=== PATIENT | male | born 1945 | race Caucasian/White ===

== ENCOUNTER 2020-10-29 14:25 | Emergency (ER) | payer MEDICARE ==
[2020-10-29 14:35] VITALS: BP 159/91; PULSE 66
[2020-10-29] MEDS ORDERED: HYDROmorphone 4 MG/ML Syringe SUBCUT PRN (15:06)
--- NOTE | 2020-10-29 15:38 | EDM.PDOC ---
ED HPI GENERAL MEDICAL PROBLEM - General Stated Complaint: FALL OFF LADDER Time Seen by Provider: 10/29/20 14:30 - History of Present Illness INITIAL COMMENTS - FREE TEXT/NARRATIVE: Pt fell off ladder shikha 6 - 8 feet. Landing on his buttocks and then hitting his head. He was told he was unconscious for a few seconds. He has C/O headache and a lump on the back of his head. He does have low back and tailbone pain. NO chest pain - SOB - Abd pain. head Pain Score (Numeric/FACES): 5 - Related Data Allergies Allergy/AdvReac Type Severity Reaction Status Date / Time No Known Allergies Allergy Verified 12/12/13 13:05 Home Meds: Home Meds atorvaSTATin Calcium [Atorvastatin Calcium] 10/29/20 [History] ED ROS GENERAL - Review of Systems Review Of Systems: Comprehensive ROS is negative, except as noted in HPI. HEENT: Reports: Other (swelling on back of head.) Musculoskeletal: Reports: Other (Low back and tailbone pain.) ED EXAM, HEAD INJURY - Physical Exam Exam: See Below Text/Narrative:: Pt is awake and alert. No respiratory distress. Examining his head reveals a mass on the lower left posterior portion shikha 3 cm in size. Skin is intact. Examining his back reveals 2 small abrasion injuries on the lower back. No bleeding. PERRL - C collar removed, no pain with palpation of his neck. He can rotate his head and neck gently without pain. Eyes: Bilateral Eye: EOMI, PERRL Neurologic: executive office manager II-XII nml As Tested - Silvia Coma Score Best Eye Response ([place]): (4) Open Spontaneously Best Verbal Response ([place]): (5) Oriented Best Motor Response (Silvia): (6) Obeys Commands Silvia Total: 15 Course - Vital Signs Last Recorded V/S: Last Vital Signs Temp 98.1 F 10/29/20 14:30 Pulse 66 10/29/20 14:30 Resp 16 10/29/20 14:30 BP 159/91 H 10/29/20 14:30 Pulse Ox 98 10/29/20 14:30 - Orders/Labs/Meds Orders: Active Orders 24 hr Category Date Time Status Abdomen Pelvis wo Cont [CT] Stat Exams 10/29/20 14:28 Taken Cervical Spine wo Cont [CT] Stat Exams 10/29/20 14:28 Taken Head wo Cont [CT] Stat Exams 10/29/20 14:28 Taken UA W/MICROSCOPIC [URIN] Stat Lab 10/29/20 14:28 Ordered Labs: Laboratory Tests 10/29/20 10/29/20 Range/Units 14:40 14:40 WBC 6.4 (4.0-11.0) K/uL RBC 4.83 (4.50-6.50) M/uL Hgb 15.1 (13.0-18.0) g/dL Hct 43.9 (40.0-54.0) % MCV 91 (76-96) fL MCH 31.3 (27.0-32.0) pg MCHC 34.4 (31.0-35.0) g/dL RDW 13.6 (11.0-16.0) % Plt Count 178 (150-400) K/uL MPV 10.5 H (6.0-10.0) fL Neut % (Auto) 60.2 (45.0-70.0) % Lymph % (Auto) 27.9 (20.0-40.0) % [place] % (Auto) 9.4 (3.0-10.0) % Eos % (Auto) 1.6 (1.0-5.0) % Baso % (Auto) 0.9 H (0.0-0.5) % Neut # (Auto) 3.82 (2.00-7.50) K/uL Lymph # (Auto) 1.77 (1.50-4.00) K/uL [place] # (Auto) 0.60 (0.20-0.80) K/uL Eos # (Auto) 0.10 (0.04-0.40) K/uL Baso # (Auto) 0.06 (0.02-0.10) K/uL Sodium 139 (136-145) mmol/L Potassium 4.0 (3.5-5.1) mmol/L Chloride 108 H (98-107) mmol/L Carbon Dioxide 26.1 (21.0-32.0) mmol/L Anion Gap 8.9 (5.0-15.0) mmol/L BUN 20 (8-26) mg/dL Creatinine 1.05 (0.70-1.30) mg/dL Est Cr Clr Drug Dosing TNP Estimated GFR (MDRD) > 60 (>60) MLS/MIN BUN/Creatinine Ratio 19.0 (6-25) Glucose 97 (74-100) mg/dL Calcium 8.8 (8.5-10.1) mg/dL Total Bilirubin 0.7 (0.0-1.0) mg/dL AST 18 (15-37) U/L ALT 22 (12-78) U/L Alkaline Phosphatase 69 (46-116) U/L Total Protein 6.1 L (6.4-8.2) g/dL Albumin 3.2 L (3.4-5.0) g/dL Globulin 2.9 (2.2-4.2) g/dL Albumin/Globulin Ratio 1.1 (0.8-2.0) Meds: Medications Discontinued Medications Generic Name Dose Route Start Last Admin Trade Name Freq PRN Reason Stop Dose Admin Hydromorphone HCl 1 mg 10/29/20 15:06 Hydromorphone 4 Mg/Ml Syringe SUBCUT Q4H PRN Pain (moderate 4-6) - Radiology Interpretation Free Text/Narrative:: CT of Head, C spine, Abd and pelvis reveal some chronic changes, but no acute changes. - Re-Assessments/Exams Free Text/Narrative Re-Assessment/Exam: 10/29/20 15:40 Pt did get Dilaudid 1 mg Subq for pain. He continued to do well with observation. After lab and imaging reviewed he was able to get up and walk after C collar removed. He was stable - no dizziness or nausea. 10/29/20 15:41 Departure - Departure Time of Disposition: 15:30 Disposition: Home, Self-Care 01 Condition: Good Clinical Impression: Fall (on) (from) other stairs and steps, initial encounter - Discharge Information *PRESCRIPTION DRUG MONITORING PROGRAM REVIEWED*: Not Applicable *COPY OF PRESCRIPTION DRUG MONITORING REPORT IN PATIENT ALY: Not Applicable Referrals: PCP,None [Primary Care Provider] - Additional Instructions: Discharged home with . She is to be with him observing him over the next 24 hours. Monitor for any changes - increasing H/A - dizziness, nausea or vomiting. Use Tylenol alternating with Motrin every 3-4 hours for pain. Follow up as needed if his condition gets worse in any way. Sepsis Event Note (ED) - Evaluation Sepsis Screening Result: No Definite Risk - Focused Exam Vital Signs: Vital Signs Temp Pulse Resp BP Pulse Ox 10/29/20 14:30 98.1 F 66 16 159/91 H 98 - My Orders Last 24 Hours: My Active Orders 10/29/20 14:28 Abdomen Pelvis wo Cont [CT] Stat Cervical Spine wo Cont [CT] Stat Head wo Cont [CT] Stat UA W/MICROSCOPIC [URIN] Stat - Assessment/Plan Last 24 Hours: My Active Orders 10/29/20 14:28 Abdomen Pelvis wo Cont [CT] Stat Cervical Spine wo Cont [CT] Stat Head wo Cont [CT] Stat UA W/MICROSCOPIC [URIN] Stat
--- NOTE | 2020-10-29 16:43 | CT ---
DATE OF SERVICE: 10/29/2020 CLINICAL DATA: Fall CT HEAD WITHOUT CONTRAST: Multi slice axial acquisition without IV contrast was performed. No priors. There is diffuse atrophy. There are periventricular lucencies bilaterally consistent with small vessel ischemic change. No masses or mass effect. No intracranial hemorrhage. No evidence of acute or subacute infarct. There is soft tissue swelling of the scalp in the left posterior parietal region. No fractures. Impression: No acute intracranial abnormalities. MTDD
--- NOTE | 2020-10-29 16:45 | CT ---
DATE OF SERVICE: 10/29/2020 CLINICAL DATA: Fall Cervical Spine CT: Multi slice acquisition through the cervical spine from the base of the skull to T2 was performed. No priors. There is mild compression deformity of the inferior endplate of C6. This appears to be chronic. The remaining vertebrae are of average height and in good alignment. No acute fracture or dislocation. There is degenerative disc disease multiple levels with disc space narrowing at multiple levels. There is facet joint hypertrophy throughout the cervical spine. There is bony encroachment of the neural foramen bilaterally at multiple levels. There are degenerative changes involving the atlantoaxial articulation. The right lobe of the thyroid is enlarged. Thyroid ultrasound is recommended. There are emphysematous changes in both lung apices. MTDD
--- NOTE | 2020-10-29 16:48 | CT ---
DATE OF SERVICE: 10/29/2020 CLINICAL DATA: Fall Unenhanced abdomen and pelvic CT: The multi slice acquisition through the abdomen and pelvis without IV or oral contrast was performed. No priors. There are minimal atelectatic changes in both lung bases. The lung bases otherwise clear. The heart size is normal. No pericardial effusion. The unenhanced liver appears normal. No focal hepatic lesions. Gallbladder is partially contracted. It appears normal. The spleen appears normal. Pancreas is mildly atrophic, otherwise normal. The right and left adrenals appear normal. The there are benign-appearing cysts in both kidneys. There are nonobstructing renal calculi bilaterally. No hydronephrosis or hydroureter. The bladder is fluid filled. It appears normal. The prostate is mildly enlarged. There are calcifications within the prostate consistent with chronic prostatitis. There is gastric wall thickening in the body and fundus of the stomach. This is probably related to nondistention. Gastritis or an infiltrating process should at least be considered. No evidence of appendicitis. There is a moderate amount of stool noted within the cecum, ascending colon, and transverse colon. There is diverticulosis throughout the colon with severe diverticulosis in the distal descending and sigmoid colon. No evidence of diverticular abscess. There is a small fat containing umbilical hernia. No free air. No free fluid. No dilated loops of bowel. No adenopathy. No aortic aneurysm. No displaced fractures. MTDD
== END 2020-10-29 15:34 | disposition home or self-care (01) ==
LOC: LB.ED 14:25
DX: S30.810A Abrasion of lower back and pelvis, initial encounter (principal); R22.0 Localized swelling, mass and lump, head; Z79.899 Other long term (current) drug therapy; W11.XXXA Fall on and from ladder, initial encounter; W10.8XXA Fall (on) (from) other stairs and steps, initial encounter
CPT/HCPCS: 36415; 70450; 72125; 74176; 80053; 85025; 96372; 99284-25; A0425; A0429

== ENCOUNTER 2020-11-02 12:06 | Emergency (ER) | payer MEDICARE ==
[2020-11-02 12:33] VITALS: BP 151/93; PULSE 70
--- NOTE | 2020-11-02 13:11 | EDM.PDOC ---
ED HPI GENERAL MEDICAL PROBLEM - General Chief Complaint: General Stated Complaint: LEFT UPPER LEG IN PAIN Time Seen by Provider: 11/02/20 12:23 History Limitations: Reports: No Limitations - History of Present Illness INITIAL COMMENTS - FREE TEXT/NARRATIVE: pt presents to the ER with left groin pain he states worsens with certain positions, movements and palpation intermittently. pain is relieved by rest, certain positions, tylenol and ibuprofen. pt gives history of fall on 29 October which he was evaluated for including CT of head, C spine, abdomen and pelvis which were read as no acute problems. bony structures of pelvis not noted as having acute injury within radiology report. pt denies changes in bowel or bladder elimination. left groin pain that has increased over the past 24-48 hours. Onset: Today Left Groin Pain Score (Numeric/FACES): 5 - Related Data Allergies Allergy/AdvReac Type Severity Reaction Status Date / Time No Known Allergies Allergy Verified 11/02/20 12:18 Home Meds: Home Meds atorvaSTATin Calcium [Atorvastatin Calcium] 80 mg PO DAILY 10/29/20 [History] Social & Family History - Family History Family Medical History: No Pertinent Family History - Tobacco Use Tobacco Use Status *Q: Former Tobacco User Used Tobacco, but Quit: Yes Month/Year Tobacco Last Used: 04/1984 - Caffeine Use Caffeine Use: Reports: Soda - Recreational Drug Use Recreational Drug Use: No ED ROS GENERAL - Review of Systems Review Of Systems: Comprehensive ROS is negative, except as noted in HPI. ED EXAM, GENERAL - Physical Exam Exam: See Below Exam Limited By: No Limitations General Appearance: Alert, WD/WN, No Apparent Distress Eye Exam: Bilateral Eye: EOMI, PERRL Respiratory/Chest: No Respiratory Distress, Lungs Clear, Normal Breath Sounds, No Accessory Muscle Use Cardiovascular: Normal Peripheral Pulses, Regular Rate, Rhythm, No Edema Peripheral Pulses: 2+: Radial (L), Radial (R), Femoral (L), Femoral (R) Extremities: Normal Inspection, Normal Range of Motion, Normal Capillary Refill Neurological: Alert, Oriented, Normal Gait Psychiatric: Normal Affect, Normal Mood Skin Exam: Warm, Dry, Intact Course - Vital Signs Last Recorded V/S: Last Vital Signs Temp 98.1 F 11/02/20 12:10 Pulse 70 11/02/20 12:10 Resp 16 11/02/20 12:10 BP 151/93 H 11/02/20 12:10 Pulse Ox 96 11/02/20 12:10 - Orders/Labs/Meds Orders: Active Orders 24 hr Category Date Time Status Hip Min 2V or 3V w Pelvis Lt [CR] Stat Exams 11/02/20 12:49 Ordered - Radiology Interpretation Free Text/Narrative:: ultrasound of left groin shows intact and compressible inguinal vein and artery within normal limits, good doppler flow of both vessels. no noted bowel through inguinal muscle wall, no hematomas noted. wet read of left hip xray shows no noted fracture, dislocation, bony abnormality. CT of abdomen and pelvis reviewed showing no bony abnormalities noted, no inguinal hernia noted. Departure - Departure Time of Disposition: 13:55 Disposition: Home, Self-Care 01 Condition: Good Clinical Impression: Strain of left groin, Fall - Discharge Information *PRESCRIPTION DRUG MONITORING PROGRAM REVIEWED*: Not Applicable *COPY OF PRESCRIPTION DRUG MONITORING REPORT IN PATIENT ALY: Not Applicable Instructions: Muscle Strain Referrals: PCP,None [Primary Care Provider] - Additional Instructions: continue with tylenol 1000mg four times a day. reduce ibuprofen to 400mg twice a day. ibuprofen causes kidney problems more often in folks who are older than 60. reducing use can reduce its potential problems. no lifting objects over 15lb for the next 1-2 weeks. healing time from the fall will take longer than it would have if you were 20 or 30 years old. follow up in the nic in 7 days for a recheck. if the symptoms persist up to this time, an ultrasound by a technician automatic or other tests may be needed. Sepsis Event Note (ED) - Evaluation Sepsis Screening Result: No Definite Risk - Focused Exam Vital Signs: Vital Signs Temp Pulse Resp BP Pulse Ox 11/02/20 12:10 98.1 F 70 16 151/93 H 96 - Problem List & Annotations (1) Fall SNOMED Code(s): 6603586, 768290513 Code(s): W19.XXXA - UNSPECIFIED FALL, INITIAL ENCOUNTER Status: Acute Current Visit: Yes Qualifiers: Encounter type: subsequent encounter Qualified Code(s): W19.XXXD - Unspecified fall, subsequent encounter (2) Strain of left groin SNOMED Code(s): 27246030, [id number] Code(s): S76.212A - STRAIN OF ADDUCTOR MUSC/FASC/TEND LEFT THIGH, INIT Status: Acute Current Visit: Yes - Problem List Review Problem List Initiated/Reviewed/Updated: Yes - My Orders Last 24 Hours: My Active Orders 11/02/20 12:49 Hip Min 2V or 3V w Pelvis Lt [CR] Stat - Assessment/Plan Last 24 Hours: My Active Orders 11/02/20 12:49 Hip Min 2V or 3V w Pelvis Lt [CR] Stat Assessment:: assessment: fall, left groin pain plan: follow up in 6-7 days in clinic for recheck tylenol and ibuprofen as discussed 15lb lifting restriction monitor for new or changing symptoms and return as needed.
--- NOTE | 2020-11-02 13:57 | CR ---
DATE OF SERVICE: 11/02/2020 CLINICAL DATA: Fell a few days ago, worsening left hip pain Pelvis and left hip: No priors. There are mild osteoarthritic changes of both hip joints. There are degenerative changes involving the SI joints. No acute fracture or dislocation. No lytic or blastic bone lesions. Thank you for allowing us to participate in the care of your patient. ANDREEA
== END 2020-11-02 14:15 | disposition home or self-care (01) ==
LOC: LB.ED 12:06
DX: S39.011A Strain of muscle, fascia and tendon of abdomen, initial encounter (principal); Z79.899 Other long term (current) drug therapy; Z87.891 Personal history of nicotine dependence; W11.XXXA Fall on and from ladder, initial encounter
CPT/HCPCS: 73502-LT; 99283-25